=== PATIENT | female | born 1985 | race Hispanic/Latino ===

== ENCOUNTER 2020-05-15 20:42 | Inpatient (IN) | payer OTHER ==
[~2020-05-15] VITALS: Ht 152.4 cm; Wt 105.2 kg
[2020-05-15 21:17] LABS: APPEARANCE,URINE SL CLOUDY (CLEAR); BILIRUBIN,URINE NEGATIVE (NEGATIVE); COLOR,URINE YELLOW (YELLOW); GLUCOSE, URINE (UA) NEGATIVE (NEGATIVE); KETONES,URINE 5 mg/dL (NEGATIVE); LEUKOCYTE ESTERASE ,URINE SMALL (NEGATIVE); NITRATE,URINE NEGATIVE (NEGATIVE); OCCULT BLOOD,URINE NEGATIVE (NEGATIVE); PROTEIN,URINE TRACE mg/dL (NEGATIVE); UROBILINOGEN,URINE 0.2 mg/dL (0.2-1.0)
[2020-05-15 21:28] LABS: RBC,URINE 0-1 /HPF (0-1)
[2020-05-15 21:29] LABS: BACTERIA,URINE Few /HPF (None Seen); MUCUS,URINE Few LPF (None Seen); SQUAMOUS EPITHELIAL CELL,UR Moderate /HPF (0-2); YEAST,URINE BUDDING Rare /HPF (None Seen)
[2020-05-15 21:34] LABS: AMPHET/METH SCREEN,URINE NEGATIVE (NEGATIVE); BARBITURATE SCREEN, URINE NEGATIVE (NEGATIVE); BENZODIAZEPINES SCREEN,URINE NEGATIVE (NEGATIVE); CANNABINOID SCREEN,URINE NEGATIVE (NEGATIVE); COCAINE SCREEN,URINE NEGATIVE (NEGATIVE); OPIATE SCREEN,URINE NEGATIVE (NEGATIVE); PHENCYCLIDINE SCREEN,URINE NEGATIVE (NEGATIVE)
[2020-05-15 22:29] LABS: HEMATOCRIT 27.9 % (36-48); MEAN CORPUSCULAR HEMOGLOBIN 23.1 pg (27.0-33.0); MEAN CORPUSCULAR HGB CONC 31.2 g/dL (32.0-36.0); NUCLEATED RED BLOOD CELLS 0.3 % (0.0-0.19); PLATELET COUNT (AUTO) 154 K/uL (130-400); RED BLOOD CELL COUNT(AUTO) 3.77 MIL/uL (4.00-5.50); RED CELL DISTRIBUTION WIDTH 17.9 % (11.0-15.5)
[2020-05-15] MEDS ORDERED: AMPICILLIN 2GM+NS 100ML 100 ML IV SCH (22:30)
[2020-05-15 22:36] VITALS: BP 114/62
[2020-05-15] MEDS: LACTATED RINGERS 1000ML 1,000 ML IV PRN (22:40)
[2020-05-15 23:01] LABS: PLATELET MORPHOLOGY LARGE PLTS PRESENT
[2020-05-16] MEDS: AMPICILLIN 1GM+NS 50ML 50 ML IV SCH ×3 (02:36→10:47)
[2020-05-16] MEDS ORDERED: OXYTOCIN 10 USP UNITS/ML 20 UNIT in LACTATED RINGERS 1000ML 1,000 ML IV SCH (03:45)
[2020-05-16] MEDS ORDERED: OXYTOCIN-LR 20 UNITS/1000 ML 1,000 ML IV ONE (04:19)
[2020-05-16 09:23] LABS: RAPID PLASMA REAGIN NONREACTIVE (NONREACTIVE)
[2020-05-16] MEDS: LACTATED RINGERS 1000ML 1,000 ML IV PRN (10:47)
[2020-05-16] MEDS ORDERED: OXYTOCIN-LR 20 UNITS/1000 ML 1,000 ML IV SCH (11:15)
[2020-05-16] MEDS ORDERED: LACTATED RINGERS 500 ML 500 ML IV PRN (11:30)
[2020-05-16] MEDS ORDERED: EPHEDRINE SULFATE 50 MG/ML AMPULE IVP PRN (11:30)
[2020-05-16] MEDS ORDERED: NALOXONE HCL 0.4 MG/1 ML ML IV PRN (11:30)
[2020-05-16] MEDS ORDERED: ROPIVACAINE 0.2% 100ML VIAL 100 ML EP SCH (11:30)
[2020-05-16] MEDS: OXYTOCIN-LR 20 UNITS/1000 ML 1,000 ML IV SCH ×2 (13:00→14:00)
[2020-05-16] MEDS ORDERED: DIPH,PERTUSS(ACELL),TET VAC/PF 0.5 ML VIAL IM PRN (13:15)
[2020-05-16] MEDS ORDERED: BENZOCAINE/LANOLIN/ALOE VERA 60 ML AEROSOL TP PRN (13:15)
[2020-05-16] MEDS ORDERED: ACETAMINOPHEN-CODEINE 300/30MG TAB PO PRN (13:15)
[2020-05-16] MEDS ORDERED: MEASLES/MUMPS/RUBELLA VACCINE, LIVE 0.5 ML/VIAL SQ PRN (13:15)
[2020-05-16] MEDS ORDERED: ACETAMINOPHEN 325 MG TAB PO PRN (13:15)
[2020-05-16] MEDS ORDERED: LANOLIN 30GM OINTMENT TP PRN (13:15)
[2020-05-16] MEDS ORDERED: WITCH HAZEL 1 PAD TP PRN (13:15)
[2020-05-16 16:16] VITALS: BP 109/66
[2020-05-16] MEDS: IBUPROFEN 600 MG TABLET PO PRN (16:21)
[2020-05-16 19:34] VITALS: BP 114/52
[2020-05-16] MEDS: DOCUSATE SODIUM 100 MG CAP PO SCH (21:20)
[2020-05-16 23:42] VITALS: BP 111/76
[2020-05-17 03:03] VITALS: BP 110/62
[2020-05-17] MEDS: IBUPROFEN 600 MG TABLET PO PRN ×2 (06:45→13:29)
[2020-05-17 07:21] VITALS: BP 126/74
[2020-05-17 08:13] LABS: HEPATITIS Bs ANTIGEN SCREEN P Negative (Negative)
[2020-05-17 08:35] LABS: HEMATOCRIT 24.7 % (36-48); MEAN CORPUSCULAR HGB CONC 30.8 g/dL (32.0-36.0); MEAN CORPUSCULAR VOLUME 74.8 fL (79-99); PLATELET COUNT (AUTO) 141 K/uL (130-400); RED CELL DISTRIBUTION WIDTH 17.7 % (11.0-15.5); WHITE BLOOD COUNT (AUTO) 7.1 K/uL (4.8-10.8)
[2020-05-17] MEDS: DOCUSATE SODIUM 100 MG CAP PO SCH (08:59)
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
[2020-05-17 11:07] VITALS: BP 126/71
--- NOTE | 2020-05-17 13:40 | NUR ---
pt is discharged. verbal and written discharge instructions given, pls refer to exit care. informed of the follow up appointment. prescription given. informed to call the doctor for concerns. pt voiced understanding to all things discussed. Awaiting baby's discharge. Addendum: 05/17/20 at 1351 by MAIKOL FORDE RN Amended: Links added.
[2020-05-17 16:00] VITALS: BP 112/50
--- NOTE | 2020-05-17 17:30 | NUR ---
pt is dismissed with baby in stable condition, brought to private car via wheelchair Addendum: 05/17/20 at 1738 by MAIKOL FORDE RN Amended: Links added.
== END 2020-05-17 17:30 | disposition home or self-care (01) | DRG 807 ==
LOC: EDH 20:42 → OBSVTOIN 21:10 → LDH 21:10 → WSH 05-16 16:15
PROVIDERS: ADMIT Obstetrics & Gynecology; ATTEND Obstetrics & Gynecology
PROC: 10E0XZZ Delivery of Products of Conception, External Approach (ICD-10-PCS; principal; 2020-05-16)
PROC: 3E0R3BZ Introduction of Anesthetic Agent into Spinal Canal, Percutaneous Approach (ICD-10-PCS; 2020-05-16)
PROC: 00HU33Z Insertion of Infusion Device into Spinal Canal, Percutaneous Approach (ICD-10-PCS; 2020-05-16)
PROC: 3E0234Z Introduction of Serum, Toxoid and Vaccine into Muscle, Percutaneous Approach (ICD-10-PCS; 2020-05-16)
PROC: 3E0134Z Introduction of Serum, Toxoid and Vaccine into Subcutaneous Tissue, Percutaneous Approach (ICD-10-PCS; 2020-05-16)
DX: O80 Encounter for full-term uncomplicated delivery (principal); Z37.0 Single live birth; Z3A.38 38 weeks gestation of pregnancy; Z23 Encounter for immunization
CPT/HCPCS: 36415; 76805; 80305; 81001; 85027; 86592; 86701; 86850; 86900; 86901; 87340; 87390; A4314; G0378; J0290; J2590; J7120